=== PATIENT | male | born 1985 | race Caucasian/White ===

== ENCOUNTER → 2016-12-15 | Outpatient (CLI) | payer BC ==
[~2016-12-15] MED LIST: PERCOCET 5-3251 EACH PO; STOOL SOFTENER250 MG PO; ZOFRAN4 MG PO
== END ==
LOC: KOH-I 13:09
DX: M84.341A Stress fracture, right hand, initial encounter for fracture (principal); S62.316A Displaced fracture of base of fifth metacarpal bone, right hand, initial encounter for closed fracture
CPT/HCPCS: 73200

== ENCOUNTER → 2016-12-16 | Day surgery (SDC) | payer BC ==
[~2016-12-16] VITALS: Ht 188 cm; Wt 131.1 kg
== END | disposition home or self-care (01) ==
LOC: OR 10:14
PROVIDERS: Orthopaedic Surgery
PROC: 0RSS34Z Reposition Right Carpometacarpal Joint with Internal Fixation Device, Percutaneous Approach (ICD-10-PCS; principal; 2016-12-16 12:45)
DX: S62.316A Displaced fracture of base of fifth metacarpal bone, right hand, initial encounter for closed fracture (principal); F17.210 Nicotine dependence, cigarettes, uncomplicated; Z79.1 Long term (current) use of non-steroidal anti-inflammatories (NSAID); W00.0XXA Fall on same level due to ice and snow, initial encounter
CPT/HCPCS: 73130; 76000; C1763; J0690; J2250; J3010; J7030; J7120

== ENCOUNTER → 2021-02-12 | Day surgery (SDC) | payer OTHER ==
[~2021-02-12] MED LIST changes: +COLACE100 MG PO; +MAGNESIUM100 MG PO; +POTASSIUM CHLO20 ME1 PO; +VITAMIN D 40400 UNIT PO
== END | disposition home or self-care (01) ==
LOC: OR 08:01
DX: K42.0 Umbilical hernia with obstruction, without gangrene (principal); F17.200 Nicotine dependence, unspecified, uncomplicated; Z20.822 Contact with and (suspected) exposure to COVID-19; E66.01 Morbid (severe) obesity due to excess calories
CPT/HCPCS: C1781; J0690; J1100; J1170; J1885; J2001; J2250; J2405; J2704; J2710; J3010; J7120